=== PATIENT | male | born 1940 | race Caucasian/White ===

== ENCOUNTER 2017-05-02 14:06 | Emergency (ER) | payer MEDICARE, BC ==
[~2017-05-02] VITALS: Ht 172.7 cm; Wt 102.1 kg
[~2017-05-02 14:06] MED LIST: ALLO300 PO; FENT75DI T-DERMAL; FURO1TAB93 PO; GABA100C4 PO; LACT20SO4 PO; LISI2.5T55 PO; PERC7.5T13 PO; PRAV40TA PO; RIFA550 PO; RIVA20 PO; SPIR25TA PO; TOPR50TA PO; XANA1TAB6 PO
[2017-05-02 14:12] VITALS: BP 117/58; PULSE 84; RESP 12; TEMP 98.7; O2SAT 93
--- NOTE | 2017-05-02 14:49 | PD ---
HPI Chief Complaint: WOUND Time Seen by Provider: 14:39 Travel History International Travel<30 days: No Contact w/Intl Traveler<30days: No History of Present Illness HPI 76-year-old man presents emergency department for evaluation of a painful wound to the dorsal aspect of his left hand at the base of the thumb. Patient reports he cut his hand 6 days ago when he reached into his pocket and his pocket night punctured the hand. He reports he has been provided local wound care to the area. The area became increasingly more painful and slightly red 2 days ago. He denies fever, chills. He reports he has full function and normal sensation of the digit. Tetanus immunization is up-to-date. PFSH Past Medical History Atrial Fibrillation: Yes Blood Disorders: No Anxiety: Yes Heart Rhythm Problems: Yes Cancer: No Cardiovascular Problems: Yes (pacemaker/ablation) High Cholesterol: Yes Diminished Hearing: No Endocrine: No Hypertension: Yes Musculoskeletal: No Neurologic: No Reproductive: No Past Surgical History Abdominal Surgery: Yes ( INTASUSSEPTION REPAIR - BOWEL RESECTION ( DIVERTICULITIS)) AICD: Yes Body Medical Devices: DUAL PACER Cardiac Surgery: Yes (pacemaker/ablation-AICD) Pacemaker: Yes (DEFIB) Social History Alcohol Use: No Tobacco Use: No Substance Use: No Allergies-Medications (Allergen,Severity, Reaction): Uncoded Allergies: ANTIBIOTIC? (Adverse Reaction, Severe, Nausea/Vomiting, 10/14/13) Reported Meds & Prescriptions Reported Meds & Active Scripts Active Reported Alpha Lipoic Acid 200 Mg Cap 200 Mg PO TID Allopurinol 300 Mg Tab 300 Mg PO DAILY Xifaxan (Rifaximin) 550 Mg Tab 550 Mg PO Q12HR Xarelto (Rivaroxaban) 20 Mg Tab 20 Mg PO DAILY Vitamin B Complex Tablet (Vit B Comp/C/FA/Iron/Vit E) 500-400-18 Tablet 1 Tab PO DAILY Spironolactone 25 Mg Tab 25 Mg PO DAILY Pravastatin 40 Mg Tab 40 Mg PO DAILY Potassium Chloride ER (Potassium Chloride) 10 Meq Cap 10 Meq PO DAILY Lortab (Hydrocodone-Acetaminophen) 7.5-325 Mg Tab 1 Tab PO Q4H PRN Metoprolol Succinate ER 24 HR (Metoprolol Succinate) 25 Mg Tab 25 Mg PO DAILY Lisinopril 2.5 Mg Tab 2.5 Mg PO DAILY Lactulose Liq (Lactulose) 10 Gm/15 Ml Soln 30 Ml PO Q6H PRN Gabapentin 800 Mg Tab 800 Mg PO TID Furosemide 40 Mg Tab 40 Mg PO BID Folic Acid 1 Mg Tablet 1 Tab PO DAILY Centrum Silver (Multiple Vitamins W/ Minerals) 400 Mcg-250 Mcg Chw 1 Tab PO DAILY Calcium 600-D3 Plus Caplet (Ca/D3/Mag Ox/Zinc/Meter Installer/Basil/Bor) 600 Mg-800 Tablet 1 Tab PO DAILY Review of Systems Except as stated in HPI: all other systems reviewed are Neg General / Constitutional: No: Fever Physical Exam Narrative GENERAL: Well-nourished, well-developed patient. SKIN: Focused skin assessment warm/dry. Approximately 2 cm laceration left hand dorsal aspect base of left thumb with scab in place. CARDIOVASCULAR: Regular rate and rhythm without murmurs, gallops, or rubs. RESPIRATORY: Breath sounds equal bilaterally. No accessory muscle use. GASTROINTESTINAL: Abdomen soft, non-tender, nondistended. MUSCULOSKELETAL: No cyanosis, or edema. Left hand: Approximately 2 cm laceration left hand dorsal aspect base of left thumb with scab in place. Surrounding erythema is noted. The wound is warm to touch. There is no induration, fluctuance, lymphangitis. Patient is able to fully flex and extend the thumb. Brisk cap refill. Data Data Last Documented VS Vital Signs Date Time Temp Pulse Resp B/P (MAP) Pulse Ox O2 Delivery O2 Flow Rate FiO2 05/02/17 14:54 05/02/17 14:12 98.7 84 12 93 MDM Medical Decision Making Medical Screen Exam Complete: Yes Emergency Medical Condition: Yes Differential Diagnosis Wound infection, hand laceration, cellulitis Narrative Course 76-year-old man presents emergency department for evaluation of a painful wound to the dorsal aspect of his left hand at the base of the thumb. Patient reports he cut his hand 6 days ago when he reached into his pocket and his pocket night punctured the hand. He reports he has been provided local wound care to the area. The area became increasingly more painful and slightly red 2 days ago. On exam patient has an approximately 2 cm laceration to the dorsal aspect of the left thumb with a scab in place. It has surrounding erythema. No induration or fluctuance. No drainage. No lymphangitis. Patient is able to fully flex and extend the left thumb. Patient will be treated for wound infection and instructed to follow-up with his primary doctor. Patient was put in a thumb splint to immobilize the area. Wound care discussed. Patient verbalizes understanding and agrees to plan. Diagnosis Primary Impression: Wound infection Referrals: Primary Care Physician Additional Instructions: Take the antibiotics as prescribed. Wash the wound daily with soap and warm water. Dry the wound completely. Apply a clean dry dressing. Then use the thumb splint/Constantin wrap to immobilize the thumb. Follow-up with her doctor for recheck next week. Return to the emergency department if he had new worsening symptoms Scripts Sulfamethoxazole-Trimethoprim (Bactrim DS) 800-160 Mg Tab 1 TAB PO BID for Infection, #14 TAB 0 Refills Prov: Daisy Coles 05/02/17 Cephalexin (Keflex) 500 Mg Cap 500 MG PO Q6H for Infection for 7 Days, #28 CAP 0 Refills Prov: Daisy Coles 05/02/17 Disposition: 01 DISCHARGE HOME Condition: Stable Daisy Coles May 02, 2017 14:49
[2017-05-02] MEDS ORDERED: ALPH1CAP PO (14:54)
[2017-05-02] MEDS ORDERED: POTA10CA PO (14:54)
[2017-05-02] MEDS ORDERED: METO25TA6 PO (14:54)
[2017-05-02] MEDS ORDERED: GABA800T PO (14:54)
[2017-05-02] MEDS ORDERED: SPIR25TA PO (14:54)
[2017-05-02] MEDS ORDERED: CENTCHW3 PO (14:54)
[2017-05-02] MEDS ORDERED: FOLI1TAB6 PO (14:54)
[2017-05-02] MEDS ORDERED: ALLO300T2 PO (14:54)
[2017-05-02] MEDS ORDERED: CALC1TAB PO (14:54)
[2017-05-02] MEDS ORDERED: TH BTAB PO (14:54)
[2017-05-02] MEDS ORDERED: HYDR-3534 PO (14:54)
[2017-05-02] MEDS ORDERED: LACT10SO PO (14:54)
[2017-05-02] MEDS ORDERED: FURO40TA PO (14:54)
[2017-05-02] MEDS ORDERED: LISI2.5T3 PO (14:54)
[2017-05-02] MEDS ORDERED: PRAV40TA2 PO (14:54)
[2017-05-02] MEDS ORDERED: XIFA550T4 PO (14:54)
[2017-05-02] MEDS ORDERED: XARE20TA PO (14:54)
[2017-05-02] MEDS ORDERED: BACT800T5 PO (14:57)
[2017-05-02] MEDS ORDERED: CEPH-460 PO (14:57)
== END 2017-05-02 15:03 | disposition home or self-care (01) ==
LOC: PHEFT 14:06
DX: S61.412A Laceration without foreign body of left hand, initial encounter (principal); W26.0XXA Contact with knife, initial encounter; E78.00 Pure hypercholesterolemia, unspecified; I10 Essential (primary) hypertension; I48.91 Unspecified atrial fibrillation; Z95.0 Presence of cardiac pacemaker
CPT/HCPCS: 99284

== ENCOUNTER 2017-05-06 13:05 | Emergency (ER) | payer MEDICARE, BC ==
[~2017-05-06] VITALS: Ht 172.7 cm; Wt 105.0 kg
[~2017-05-06 13:05] MED LIST changes: -ALLO300 PO; +ALLO300T2 PO; +ALPH1CAP PO; +BACT800T5 PO; +CALC1TAB PO; +CENTCHW3 PO; +CEPH-460 PO; -FENT75DI T-DERMAL; +FOLI1TAB6 PO; -FURO1TAB93 PO; +FURO40TA PO; -GABA100C4 PO; +GABA800T PO; +HYDR-3534 PO; +LACT10SO PO; -LACT20SO4 PO; +LISI2.5T3 PO; -LISI2.5T55 PO; +METO25TA6 PO; -PERC7.5T13 PO; +POTA10CA PO; -PRAV40TA PO; +PRAV40TA2 PO; -RIFA550 PO; -RIVA20 PO; +TH BTAB PO; -TOPR50TA PO; -XANA1TAB6 PO; +XARE20TA PO; +XIFA550T4 PO
[2017-05-06 13:08] VITALS: BP 126/60; PULSE 90; RESP 20; TEMP 99.5; O2SAT 95
--- NOTE | 2017-05-06 13:35 | PD ---
HPI Chief Complaint: Respiratory Symptoms Time Seen by Provider: 13:22 Travel History International Travel<30 days: No Contact w/Intl Traveler<30days: No Traveled to known affect area: No History of Present Illness HPI 76-year-old male says he been feeling somewhat shaky and a little bit short of breath. He was a patient here last Friday for evaluation of a wound infection on his left hand. He was put on Bactrim and Keflex at that time. He' s been taking the medication and he is wondering if this could be a reaction to the medication. He says he has chills in the morning. He is not aware of fever. He has a history of cirrhosis. He has a history of congestive heart failure. He has not been having chest pain. PFSH Past Medical History Atrial Fibrillation: Yes Blood Disorders: No Anxiety: Yes Heart Rhythm Problems: Yes Cancer: No Cardiovascular Problems: Yes (pacemaker/ablation) High Cholesterol: Yes Diminished Hearing: No Endocrine: No Hypertension: Yes Medical other: Yes (NEUOPATHY) Musculoskeletal: No Neurologic: No Reproductive: No Tetanus Vaccination: > 5 Years Influenza Vaccination: Yes Past Surgical History Abdominal Surgery: Yes ( INTASUSSEPTION REPAIR - BOWEL RESECTION ( DIVERTICULITIS)) AICD: Yes Body Medical Devices: DUAL PACER Cardiac Surgery: Yes (pacemaker/ablation-AICD) Pacemaker: Yes (DEFIB) Social History Alcohol Use: No Tobacco Use: No Substance Use: No Allergies-Medications (Allergen,Severity, Reaction): Coded Allergies: No Known Allergies (Unverified , 05/06/17) Reported Meds & Prescriptions Reported Meds & Active Scripts Active Bactrim DS (Sulfamethoxazole-Trimethoprim) 800-160 Mg Tab 1 Tab PO BID Keflex (Cephalexin) 500 Mg Cap 500 Mg PO Q6H 7 Days Reported Alpha Lipoic Acid 200 Mg Cap 200 Mg PO TID Allopurinol 300 Mg Tab 300 Mg PO DAILY Xifaxan (Rifaximin) 550 Mg Tab 550 Mg PO Q12HR Xarelto (Rivaroxaban) 20 Mg Tab 20 Mg PO DAILY Vitamin B Complex Tablet (Vit B Comp/C/FA/Iron/Vit E) 500-400-18 Tablet 1 Tab PO DAILY Spironolactone 25 Mg Tab 25 Mg PO DAILY Pravastatin 40 Mg Tab 40 Mg PO DAILY Potassium Chloride ER (Potassium Chloride) 10 Meq Cap 10 Meq PO DAILY Lortab (Hydrocodone-Acetaminophen) 7.5-325 Mg Tab 1 Tab PO Q4H PRN Metoprolol Succinate ER 24 HR (Metoprolol Succinate) 25 Mg Tab 25 Mg PO DAILY Lisinopril 2.5 Mg Tab 2.5 Mg PO DAILY Lactulose Liq (Lactulose) 10 Gm/15 Ml Soln 30 Ml PO Q6H PRN Gabapentin 800 Mg Tab 800 Mg PO TID Furosemide 40 Mg Tab 40 Mg PO BID Folic Acid 1 Mg Tablet 1 Tab PO DAILY Centrum Silver (Multiple Vitamins W/ Minerals) 400 Mcg-250 Mcg Chw 1 Tab PO DAILY Calcium 600-D3 Plus Caplet (Ca/D3/Mag Ox/Zinc/Water Truck Driver/Basil/Bor) 600 Mg-800 Tablet 1 Tab PO DAILY Review of Systems General / Constitutional: Positive: Chills Eyes: No: Diploplia, Blurred Vision HENT: No: Headaches, Vertigo Cardiovascular: No: Chest Pain or Discomfort, Palpitations Respiratory: Positive: Shortness of Breath, No: Cough Gastrointestinal: No: Nausea, Vomiting Genitourinary: No: Urgency, Frequency Skin: No Rash, No Itching Hematologic/Lymphatic: No: Easy Bruising Physical Exam Narrative GENERAL: Well-developed male SKIN: Focused skin assessment warm/dry. HEAD: Atraumatic. Normocephalic. EYES: Pupils equal and round. No scleral icterus. No injection or drainage. ENT: No nasal bleeding or discharge. Mucous membranes pink and moist. NECK: Trachea midline. No JVD. CARDIOVASCULAR: Regular rate and rhythm. No murmur appreciated. RESPIRATORY: No accessory muscle use. Clear to auscultation. Breath sounds equal bilaterally. GASTROINTESTINAL: Abdomen soft, non-tender, nondistended. Hepatic and splenic margins not palpable. MUSCULOSKELETAL: No obvious deformities. No clubbing. No cyanosis. Bilateral pedal edema. The wound On the left hand is not red or hot. It appears to be healing well. I don't see evidence of infection at this time. NEUROLOGICAL: Awake and alert. No obvious cranial nerve deficits. Motor grossly within normal limits. Normal speech. PSYCHIATRIC: Appropriate mood and affect; insight and judgment normal. Data Data Last Documented VS Vital Signs Date Time Temp Pulse Resp B/P (MAP) Pulse Ox O2 Delivery O2 Flow Rate FiO2 05/06/17 13:22 82 98 Room Air 05/06/17 13:08 99.5 20 126/60 (82) Orders Orders Complete Blood Count With Diff (05/06/17 13:31) Comprehensive Metabolic Panel (05/06/17 13:31) B-Type Natriuretic Peptide (05/06/17 13:31) Chest, Single Ap (05/06/17 13:31) Labs Laboratory Tests Test 05/06/17 13:45 White Blood Count 7.4 TH/MM3 Red Blood Count 2.97 MIL/MM3 Hemoglobin 11.0 GM/DL Hematocrit 32.9 % Mean Corpuscular Volume 110.8 FL Mean Corpuscular Hemoglobin 37.2 PG Mean Corpuscular Hemoglobin Concent 33.6 % Red Cell Distribution Width 13.3 % Platelet Count 70 TH/MM3 Mean Platelet Volume 8.9 FL Neutrophils (%) (Auto) 76.8 % Lymphocytes (%) (Auto) 7.5 % Monocytes (%) (Auto) 14.7 % Eosinophils (%) (Auto) 0.6 % Basophils (%) (Auto) 0.4 % Neutrophils # (Auto) 5.7 TH/MM3 Lymphocytes # (Auto) 0.6 TH/MM3 Monocytes # (Auto) 1.1 TH/MM3 Eosinophils # (Auto) 0.0 TH/MM3 Basophils # (Auto) 0.0 TH/MM3 CBC Comment AUTO DIFF Blood Urea Nitrogen 23 MG/DL Creatinine 1.60 MG/DL Random Glucose 128 MG/DL Total Protein 6.9 GM/DL Albumin 3.3 GM/DL Calcium Level 8.8 MG/DL Alkaline Phosphatase 83 U/L Aspartate Amino Transf (AST/SGOT) 28 U/L Alanine Aminotransferase (ALT/SGPT) 22 U/L Total Bilirubin 3.5 MG/DL Sodium Level 129 MEQ/L Potassium Level 4.5 MEQ/L Chloride Level 97 MEQ/L Carbon Dioxide Level 24.3 MEQ/L Anion Gap 8 MEQ/L Estimat Glomerular Filtration Rate 42 ML/MIN [facility] Medical Decision Making Medical Screen Exam Complete: Yes Emergency Medical Condition: Yes Medical Record Reviewed: Yes Differential Diagnosis Differential includes adverse medication reaction, CHF Narrative Course X-ray shows cardiomegaly and pulmonary vascular congestion. He is currently on Aldactone and Lasix 80 a day. I will increase the Lasix to 3 times daily Diagnosis Primary Impression: Congestive heart failure Qualified Codes: I50.9 - Heart failure, unspecified Additional Instructions: Increase furosemide to 40 mg 3 times daily Disposition: 01 DISCHARGE HOME Condition: Stable Valentino Arrieta MD May 06, 2017 13:35
[2017-05-06 13:55] LABS: AUTOMATED NEUTROPHIL # 5.7 TH/MM3 (1.8-7.7); BASOPHIL % 0.4 % (0.0-2.0); EOSINOPHIL % 0.6 % (0.0-4.0); HEMATOCRIT 32.9 % (39.0-51.0); LYMPH % 7.5 % (9.0-44.0); LYMPHOCYTE # 0.6 TH/MM3 (1.0-4.8); MEAN CELL VOLUME 110.8 FL (80.0-100.0); MEAN CORPUSCULAR HEMOGLOBIN 37.2 PG (27.0-34.0); MEAN CORPUSCULAR HGB CONC 33.6 % (32.0-36.0); MONO % 14.7 % (0.0-8.0); NEUT % 76.8 % (16.0-70.0); PLATELET COUNT 70 TH/MM3 (150-450); RED BLOOD COUNT 2.97 MIL/MM3 (4.50-5.90); RED CELL DISTRIBUTION WIDTH 13.3 % (11.6-17.2); WHITE BLOOD COUNT 7.4 TH/MM3 (4.0-11.0)
[2017-05-06 13:58] LABS: HEMO FLAGS AUTO DIFF
[2017-05-06 14:04] LABS: CHLORIDE 97 MEQ/L (98-107); POTASSIUM 4.5 MEQ/L (3.5-5.1); SODIUM (NA) 129 MEQ/L (136-145)
--- NOTE | 2017-05-06 14:05 | RADRPT ---
EXAM DATE/TIME: 05/06/2017 13:41 [place] COMPARISON: No previous studies available for comparison. INDICATIONS : Short of breath for 3 days. MEDICAL HISTORY : Congestive heart failure. SURGICAL HISTORY : Pacemaker. ENCOUNTER: Initial ACUITY: 3 days PAIN SCORE: 0/10 LOCATION: Bilateral chest FINDINGS: Pacemaker device is noted with control pack over the left chest. Cardiac silhouette is prominent. The re maybe mild parenchymal opacity in the lung bases with mild central vascular congestion noted. CONCLUSION: Poorly compensated cardiac enlargement. Michael Lilly MD on May 06, 2017 at 13:59 Board Certified Radiologist. This report was verified electronically.
[2017-05-06 14:09] LABS: ANION GAP 8 MEQ/L (5-15); BICARBONATE 24.3 MEQ/L (21.0-32.0); BLOOD UREA NITROGEN 23 MG/DL (7-18)
[2017-05-06 14:12] LABS: ALT (GPT) 22 U/L (12-78); AST (GOT) 28 U/L (15-37); GLOMERULAR FILTRATION RATE 42 ML/MIN (>89)
[2017-05-06 14:13] LABS: TOTAL BILIRUBIN ADULT 3.5 MG/DL (0.2-1.0)
[2017-05-06 14:15] LABS: ALKALINE PHOSPHATASE 83 U/L (45-117)
[2017-05-06 14:35] LABS: SCAN/DIFF AUTO DIFF CONFIRMED
[2017-05-06 15:15] VITALS: BP 130/62; PULSE 82; RESP 22; O2SAT 96
== END 2017-05-06 15:20 | disposition home or self-care (01) ==
LOC: PHED 13:05
DX: I50.9 Heart failure, unspecified (principal); R68.83 Chills (without fever); I10 Essential (primary) hypertension; E78.00 Pure hypercholesterolemia, unspecified; K74.60 Unspecified cirrhosis of liver; Z86.79 Personal history of other diseases of the circulatory system; Z86.59 Personal history of other mental and behavioral disorders; Z95.810 Presence of automatic (implantable) cardiac defibrillator
CPT/HCPCS: 71010; 80053; 83880; 85025; 99284

== ENCOUNTER 2018-05-18 16:05 | Observation (INO) ==
--- NOTE | 2018-05-18 16:27 | ED ---
HPI General Chief Complaint: Arrhythmia / Palpitations Stated Complaint: cardiac/evac Time Seen by Provider: 05/18/18 16:14 Source: patient Mode of arrival: EMS Limitations: no limitations History of Present Illness HPI Narrative: patient has a medtronic device... 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 Patient is otherwise a poor historian Related Data Home Medications Medication Instructions Recorded Confirmed allopurinol 300 mg PO DAILY 03/24/18 05/18/18 alpha lipoic acid 200 mg PO TID 03/24/18 05/18/18 calcium carbonate-vitamin D3 1 tab PO DAILY 03/24/18 05/18/18 [Calcium 600 + D(3)] folic acid 1 mg PO DAILY 03/24/18 05/18/18 furosemide [Lasix] 40 mg PO TID 03/24/18 05/18/18 lactulose 10 g PO BID 03/24/18 05/18/18 lisinopril 2.5 mg PO DAILY 03/24/18 05/18/18 metoprolol succinate 12.5 mg PO DAILY 03/24/18 05/18/18 potassium chloride 10 meq PO DAILY 03/24/18 05/18/18 pravastatin 40 mg PO HS 03/24/18 05/18/18 rifaximin [Xifaxan] 550 mg PO BID 03/24/18 05/18/18 rivaroxaban [Xarelto] 20 mg PO DAILY 03/24/18 05/18/18 spironolactone 25 mg PO DAILY 03/24/18 05/18/18 vitamin B complex 1 cap PO DAILY 03/24/18 05/18/18 [id number] acid-lutein [Centrum 1 tab PO DAILY 05/18/18 05/18/18 Silver] oxycodone-acetaminophen 1 tab PO TID 05/18/18 05/18/18 Allergies Allergy/AdvReac Type Severity Reaction Status Date / Time doxycycline Allergy Rash Verified 05/18/18 17:10 Review of Systems ROS Unobtainable ROS Unobtainable: other (Patient is a very poor historian) [facility] Medical History Medical History History of diverticulitis (Acute) History of gout (Acute) History of atrial fibrillation (Acute) History of liver disease (Acute) History of neuropathy (Acute) History of automatic internal cardiac defibrillator (AICD) (Acute) Anemia (Acute) Hypercholesterolemia (Acute) Thrombocytopenia (Acute) Surgical History Surgical History History of colectomy (Acute) Social History Social History Substance History: No History of Abuse Second Hand Smoke Exposure: No Smoking Status: Former smoker Tobacco Type: Cigarettes How Often Do You Have a Drink Containing Alcohol: 4 or more times a week Recent Travel in [facility] within the Last 8 Weeks: No Recent Out of Country Travel within the Last 8 Weeks: No Exam Narrative Exam Narrative: GENERAL: male in moderate distress, which improved when patient laid supine.. SKIN: Warm and dry. HEAD: Atraumatic. Normocephalic. EYES: Pupils equal and round. No scleral icterus. No injection or drainage. ENT: No nasal bleeding or discharge. Mucous membranes pink and moist. NECK: Trachea midline. No JVD. CARDIOVASCULAR: Irregular rhythm, normal rate in the 70s. no rubs or gallops RESPIRATORY: No accessory muscle use. Clear to auscultation. Breath sounds equal bilaterally. GASTROINTESTINAL: Abdomen soft, non-tender, nondistended. No rebound or guarding MUSCULOSKELETAL: Extremities without clubbing, cyanosis, or edema. No obvious deformities. NEUROLOGICAL: Awake and alert. No obvious cranial nerve deficits. Motor grossly within normal limits. Five out of 5 muscle strength in the arms and legs. Normal speech. PSYCHIATRIC: Appropriate mood and affect; insight and judgment normal. Course Initial Documented Vital Signs Temperature 97.4 F L 05/18/18 16:27 Pulse Rate 52 L 05/18/18 16:27 Respiratory Rate 12 05/18/18 16:27 Blood Pressure 119/56 L 05/18/18 16:27 Pulse Oximetry 98 05/18/18 16:27 Last Documented Vital Signs Temperature 97.4 F L 05/18/18 16:27 Pulse Rate 89 05/18/18 19:08 Respiratory Rate 14 05/18/18 19:08 Blood Pressure 91/45 L 05/18/18 19:08 Pulse Oximetry 97 05/18/18 19:08 Critical Care Time Critical Care Time: Yes Total Critical Care Time: 30 Attestation: Aggregate critical care time was 30 minutes. Time to perform other separately billable procedures was not included in the critical care time. My time did not include minutes spent treating any other patients simultaneously or on activities that did not directly contribute to the patient's treatment. The services I provided to this patient were to treat and/or prevent clinically significant deterioration that could result in: [, permanent brain injury] I provided critical care services requiring my management, as noted below: Chart data review, documentation time, medication orders and management, vital sign assessments/reviewing monitor data, ordering and reviewing lab tests, ordering and interpreting/reviewing x-rays and diagnostic studies, care of the patient and discussion of the patient with the admitting physicians. Medical Decision Making MDM Narrative Medical Screen Exam Complete: Yes Emergency Medical Condition: Yes Differential Diagnosis Differential Diagnosis: Electrolyte abnormalities versus symptomatic bradycardia versus non-STEMI atypical versus STEMI atypical Medical Records Medical records reviewed: Yes I reviewed the patient's medical records. Lab Data Lab results reviewed: Yes I reviewed the patient's lab results. Result diagrams: 05/18/18 16:20 05/18/18 16:20 Lab Results 05/18/18 05/18/18 05/18/18 Range/Units 16:20 16:20 16:20 WBC 7.0 (4.0-11.0) th/mm3 RBC 2.78 L (4.50-5.90) mil/mm3 Hgb 11.3 L (13.0-17.0) gm/dL Hct 32.0 L (39.0-51.0) % MCV 115.1 H (80.0-100.0) fL MCH 40.5 H (27.0-34.0) pg MCHC 35.2 (32.0-36.0) % RDW 14.5 (11.6-17.2) % Plt Count 72 L (150-450) th/mm3 MPV 10.1 (7.0-11.0) fL Prelim Diff (Auto) Slide review pending Neut % (Auto) 75.5 H (16.0-70.0) % Lymph % (Auto) 11.1 (9.0-44.0) % [place] % (Auto) 11.8 H (0.0-8.0) % Eos % (Auto) 1.1 (0.0-4.0) % Baso % (Auto) 0.5 (0.0-2.0) % Neut # (Auto) 5.3 (1.8-7.7) th/mm3 Lymph # (Auto) 0.8 L (1.0-4.8) th/mm3 [place] # (Auto) 0.8 (0.0-0.9) th/mm3 Eos # (Auto) 0.1 (0.0-0.4) th/mm3 Baso # (Auto) 0.0 (0.0-0.2) th/mm3 WBC Differential . Diff Scan Auto diff confirmed Differential Comment . Platelet Estimate Low L (Normal) Platelet Morphology Normal (Normal) Spherocytes 1+ H (None) Ovalocytes 2+ H (None) PT 17.2 H (9.8-11.6) sec INR 1.7 Ratio APTT 41.0 H (24.3-30.1) sec Sodium 129 L (136-145) meq/L Potassium 3.6 (3.5-5.1) meq/L Chloride 94 L (98-107) meq/L Carbon Dioxide 22.7 (21.0-32.0) meq/L Anion Gap 12 (5-15) meq/L BUN 19 H (7-18) mg/dL Creatinine 2.64 H (0.60-1.30) mg/dL Estimated GFR 24 L (>89) mL/min Random Glucose 104 (74-106) mg/dL Calcium 8.6 (8.5-10.1) mg/dL Total Bilirubin 2.4 H (0.2-1.0) mg/dL AST 53 H (15-37) U/L ALT 24 (12-78) U/L Alkaline Phosphatase 162 H (45-117) U/L Total Creatine Kinase 174 (39-308) U/L CK-MB (CK-2) 7.4 H (0.5-3.6) ng/mL Troponin I 0.04 (0.02-0.05) ng/mL B-Natriuretic Peptide (0-100) pg/mL Total Protein 6.1 L (6.4-8.2) g/dL Albumin 2.8 L (3.4-5.0) g/dL Lipase 83 (73-393) U/L Serum Alcohol Less than 3 (0-5) mg/dL 05/18/18 Range/Units 16:20 WBC (4.0-11.0) th/mm3 RBC (4.50-5.90) mil/mm3 Hgb (13.0-17.0) gm/dL Hct (39.0-51.0) % MCV (80.0-100.0) fL MCH (27.0-34.0) pg MCHC (32.0-36.0) % RDW (11.6-17.2) % Plt Count (150-450) th/mm3 MPV (7.0-11.0) fL Prelim Diff (Auto) Neut % (Auto) (16.0-70.0) % Lymph % (Auto) (9.0-44.0) % [place] % (Auto) (0.0-8.0) % Eos % (Auto) (0.0-4.0) % Baso % (Auto) (0.0-2.0) % Neut # (Auto) (1.8-7.7) th/mm3 Lymph # (Auto) (1.0-4.8) th/mm3 [place] # (Auto) (0.0-0.9) th/mm3 Eos # (Auto) (0.0-0.4) th/mm3 Baso # (Auto) (0.0-0.2) th/mm3 WBC Differential Diff Scan Differential Comment Platelet Estimate (Normal) Platelet Morphology (Normal) Spherocytes (None) Ovalocytes (None) PT (9.8-11.6) sec INR Ratio APTT (24.3-30.1) sec Sodium (136-145) meq/L Potassium (3.5-5.1) meq/L Chloride (98-107) meq/L Carbon Dioxide (21.0-32.0) meq/L Anion Gap (5-15) meq/L BUN (7-18) mg/dL Creatinine (0.60-1.30) mg/dL Estimated GFR (>89) mL/min Random Glucose (74-106) mg/dL Calcium (8.5-10.1) mg/dL Total Bilirubin (0.2-1.0) mg/dL AST (15-37) U/L ALT (12-78) U/L Alkaline Phosphatase (45-117) U/L Total Creatine Kinase (39-308) U/L CK-MB (CK-2) (0.5-3.6) ng/mL Troponin I (0.02-0.05) ng/mL B-Natriuretic Peptide 90 (0-100) pg/mL Total Protein (6.4-8.2) g/dL Albumin (3.4-5.0) g/dL Lipase (73-393) U/L Serum Alcohol (0-5) mg/dL Imaging Data Radiologist's impression: Chest X-Ray 05/18/18 16:14 CONCLUSION: No acute intrathoracic disease. Stable examination. ECG Data EKG Prior to Arrival: No Attestation: I personally reviewed and interpreted this ECG as follows: Prior ECG tracings: not available for review Interpretation: paced rhythm Discharge Plan Discharge Disposition Patient Disposition: 30 Still Patient Discharge Condition Condition: Fair Discharge Details Diagnosis: Symptomatic bradycardia Physicians Team ED Provider: Valente Loya Primary Care Provider: Vishal Faye Rxs /Orders / Referrals /Forms Prescriptions: No Action oxycodone-acetaminophen 10-325 mg Tablet 1 tab PO TID RF: 0 [id number] acid-lutein [Centrum Silver] 400-250 mcg Tablet,Chewable 1 tab PO DAILY RF: 0 furosemide [Lasix] 40 mg Tablet 40 mg PO TID RF: 0 folic acid 1 mg Tablet 1 mg PO DAILY RF: 0 lactulose 10 gram/15 mL Solution 10 g PO BID RF: 0 calcium carbonate-vitamin D3 [Calcium 600 + D(3)] 600 mg(1,500mg) -400 unit Tablet 1 tab PO DAILY RF: 0 pravastatin 40 mg Tablet 40 mg PO HS RF: 0 potassium chloride 10 mEq Tablet Extended Release 10 meq PO DAILY RF: 0 spironolactone 25 mg Tablet 25 mg PO DAILY RF: 0 allopurinol 300 mg Tablet 300 mg PO DAILY RF: 0 metoprolol succinate 25 mg Tablet Extended Release 24 Hr 12.5 mg PO DAILY RF: 0 lisinopril 2.5 mg Tablet 2.5 mg PO DAILY RF: 0 vitamin B complex Capsule 1 cap PO DAILY RF: 0 rifaximin [Xifaxan] 550 mg Tablet 550 mg PO BID RF: 0 alpha lipoic acid 200 mg Capsule 200 mg PO TID RF: 0 rivaroxaban [Xarelto] 20 mg Tablet 20 mg PO DAILY RF: 0 Status ED Status: With Doctor
--- NOTE | 2018-05-18 16:39 | XR ---
EXAM DATE: 05/18/2018 4:14 PM EDT AGE/SEX: 77 years / Male INDICATIONS: Chest pain today CLINICAL DATA: This is the patient's initial encounter. Patient reports that signs and symptoms have been present for 1 day and indicates a pain score of Nonresponsive. MEDICAL/SURGICAL HISTORY: Congestive heart failure. Cardiovascular disease. Pacemaker. COMPARISON: [facility], CHEST 1V SINGLE AP, 04/02/2018. . FINDINGS: A single AP view of the chest demonstrates the lungs to be symmetrically aerated without evidence of mass, infiltrate or effusion. The heart size remains diffusely enlarged. This is stable compared to the prior study. There is a pacemaker overlying the left chest. No definite pleural effusions. Compar ed to the prior study there have been no new or significant changes. The bony structures are grossly intact.. CONCLUSION: No acute intrathoracic disease. Stable examination. Electronically signed by: Luis Manuel Lopez MD 05/18/2018 4:38 PM EDT
[2018-05-18 17:44] LABS: Baso % (Auto) 0.5 % (0.0-2.0); Eos # (Auto) 0.1 th/mm3 (0.0-0.4); Eos % (Auto) 1.1 % (0.0-4.0); Hemoglobin 11.3 gm/dL (13.0-17.0); Lymph # (Auto) 0.8 th/mm3 (1.0-4.8); Lymph % (Auto) 11.1 % (9.0-44.0); Mean Corpuscular HGB Conc 35.2 % (32.0-36.0); Mean Corpuscular Hemoglobin 40.5 pg (27.0-34.0); Mean Corpuscular Volume 115.1 fL (80.0-100.0); Mean Platelet Volume 10.1 fL (7.0-11.0); Mono # (Auto) 0.8 th/mm3 (0.0-0.9); Mono % (Auto) 11.8 % (0.0-8.0); Neut # (Auto) 5.3 th/mm3 (1.8-7.7); Neut % (Auto) 75.5 % (16.0-70.0); Platelet Count 72 th/mm3 (150-450); Red Blood Count 2.78 mil/mm3 (4.50-5.90); Red Cell Distribution Width 14.5 % (11.6-17.2)
[2018-05-18 17:55] LABS: INR 1.7 Ratio; Prothrombin Time 17.2 sec (9.8-11.6)
[2018-05-18 18:09] LABS: Alanine Aminotransferase 24 U/L (12-78)
[2018-05-18 18:16] LABS: Ovalocytes 2+; Platelet Morphology Normal (Normal); Spherocytes 1+
[2018-05-18 18:17] LABS: Albumin 2.8 g/dL (3.4-5.0); Alkaline Phosphatase 162 U/L (45-117); Anion Gap 12 meq/L (5-15); Aspartate Aminotransferase 53 U/L (15-37); Blood Urea Nitrogen 19 mg/dL (7-18); Calcium 8.6 mg/dL (8.5-10.1); Carbon Dioxide 22.7 meq/L (21.0-32.0); Chloride 94 meq/L (98-107); Creatine Kinase 174 U/L (39-308); Glomerular Filtration Rate 24 mL/min (>89); Glucose,Random 104 mg/dL (74-106); Lipase 83 U/L (73-393); Potassium 3.6 meq/L (3.5-5.1); Sodium 129 meq/L (136-145); Total Protein 6.1 g/dL (6.4-8.2); Troponin I 0.04 ng/mL (0.02-0.05)
[2018-05-18 18:31] LABS: Creatine Kinase MB 7.4 ng/mL (0.5-3.6)
[2018-05-18] MEDS ORDERED: Sod Chloride 0.9% Inj 1,000 ML IV.CONT SCH (22:00)
--- NOTE | 2018-05-18 22:04 | P.HP ---
History of Present Illness Service: [facility] Primary Care Physician: Vishal Faye DO History of Present Illness: 77-year-old male with a past medical history significant for cirrhosis, neuropathy, atrial fibrillation anticoagulated on Xarelto, hyperlipidemia and gout presents to the emergency department for the evaluation of bradycardia and hypotension. The patient reports over the past several weeks he has fallen multiple times. He states that he feels dizzy before he is about to fall some of the time. He also states that approximately 2 weeks ago he lost consciousness prior to a fall in the driveway. Today, the patient was found by EMS to be bradycardic with his heart rate in the 30s-40s and hypotensive with a systolic blood pressure of 70s-80s. The patient endorses dizziness. He denies headache. No fevers or chills. No chest pain or shortness of breath. No abdominal pain. No nausea/vomiting/diarrhea. No lateralizing signs/symptoms. The patient has a [employer] pacemaker/defibrillator and is currently paced in the 50s. Review of Systems All other systems reviewed negative except as stated in HPI PMFSH - History History Provided By: Patient, Digital Marketing Strategist / EMT - Medical History Medical History: Medical History (Last Reviewed 05/18/18 @ 21:57 by Fior Alonzo MD) History of diverticulitis (Acute) History of gout (Acute) History of atrial fibrillation (Acute) History of liver disease (Acute) History of neuropathy (Acute) History of automatic internal cardiac defibrillator (AICD) (Acute) Anemia Hypercholesterolemia Thrombocytopenia - Surgical History Surgical History: Surgical History (Last Reviewed 05/18/18 @ 21:57 by Fior Alonzo MD) History of colectomy (Acute) - Family History Family History: Family History (Last Updated 05/18/18 @ 21:57 by Fior Alonzo MD) Other Breast cancer Coronary artery disease Diabetes mellitus - Tobacco History Second Hand Smoke Exposure: No Smoking Status: Former smoker Tobacco Type: Cigarettes - Alcohol History How Often Do You Have a Drink Containing Alcohol: 4 or more times a week - Substance Use History Substance History: No History of Abuse - Travel History Recent Travel in the [place] Within the Last 8 Weeks: No Recent Travel Out of the Country Within the Last 8 Weeks: No - Immunization History Tetanus Immunization: Unsure Medications and Allergies Active Medications: Active Medications Allopurinol (Zyloprim) 300 mg PO DAILY EMILY Folic Acid (Folic Acid) 1 mg PO DAILY EMILY Furosemide (Lasix) 40 mg PO TID EMILY Non-Formulary Medication (Lactulose [Lactulose]) 10 g PO BID EMILY Sodium Chloride (Ns Flush) 2 ml IV.FLUSH UNSCH PRN PRN Reason: FLUSH AFTER USING IV ACCESS Allergies Allergy/AdvReac Type Severity Reaction Status Date / Time doxycycline Allergy Rash Verified 05/18/18 17:10 Home Medications Medication Instructions Recorded Confirmed Type allopurinol 300 mg PO DAILY 03/24/18 05/18/18 History alpha lipoic acid 200 mg PO TID 03/24/18 05/18/18 History calcium carbonate-vitamin D3 1 tab PO DAILY 03/24/18 05/18/18 History [Calcium 600 + D(3)] folic acid 1 mg PO DAILY 03/24/18 05/18/18 History furosemide [Lasix] 40 mg PO TID 03/24/18 05/18/18 History lactulose 10 g PO BID 03/24/18 05/18/18 History lisinopril 2.5 mg PO DAILY 03/24/18 05/18/18 History metoprolol succinate 12.5 mg PO DAILY 03/24/18 05/18/18 History potassium chloride 10 meq PO DAILY 03/24/18 05/18/18 History pravastatin 40 mg PO HS 03/24/18 05/18/18 History rifaximin [Xifaxan] 550 mg PO BID 03/24/18 05/18/18 History rivaroxaban [Xarelto] 20 mg PO DAILY 03/24/18 05/18/18 History spironolactone 25 mg PO DAILY 03/24/18 05/18/18 History vitamin B complex 1 cap PO DAILY 03/24/18 05/18/18 History [id number] acid-lutein [Centrum 1 tab PO DAILY 05/18/18 05/18/18 History Silver] oxycodone-acetaminophen 1 tab PO TID 05/18/18 05/18/18 History Exam Vital signs: Vital Signs 05/18/18 16:27 05/18/18 16:40 05/18/18 19:08 Temperature 97.4 F L Pulse Rate 52 L 89 Respiratory Rate 12 14 Blood Pressure 119/56 L 91/45 L Pulse Oximetry 98 99 97 Intake & Output 05/18/18 05/18/18 05/19/18 06:59 18:59 06:59 Weight 92.986 kg Narrative: Gen.: No acute distress Head: Normocephalic. Atraumatic. EENT: Pupils equal round and reactive to light. Nose without drainage. Airway intact. Throat without injection. Cardiovascular: Regular rate and rhythm. No murmurs, rubs or gallops. Respiratory: Lungs clear to auscultation bilaterally. No wheezes or rhonchi. Abdomen: Soft, nontender, nondistended. No peritoneal signs. Musculoskeletal: No gross deformities. No edema. Skin: No obvious rashes or erythema. Neuro: Sensory and motor grossly intact. Cranial nerves II through XII grossly intact. Results - Labs CBC & Chem 7: 05/18/18 16:20 05/18/18 16:20 Labs: Laboratory Results - last 24 hr 05/18/18 05/18/18 05/18/18 16:20 16:20 16:20 WBC 7.0 RBC 2.78 L Hgb 11.3 L Hct 32.0 L MCV 115.1 H MCH 40.5 H MCHC 35.2 RDW 14.5 Plt Count 72 L MPV 10.1 Prelim Diff (Auto) Slide review pending Neut % (Auto) 75.5 H Lymph % (Auto) 11.1 [place] % (Auto) 11.8 H Eos % (Auto) 1.1 Baso % (Auto) 0.5 Neut # (Auto) 5.3 Lymph # (Auto) 0.8 L [place] # (Auto) 0.8 Eos # (Auto) 0.1 Baso # (Auto) 0.0 WBC Differential . Diff Scan Auto diff confirmed Differential Comment . Platelet Estimate Low L Platelet Morphology Normal Spherocytes 1+ H Ovalocytes 2+ H PT 17.2 H INR 1.7 APTT 41.0 H Sodium 129 L Potassium 3.6 Chloride 94 L Carbon Dioxide 22.7 Anion Gap 12 BUN 19 H Creatinine 2.64 H Estimated GFR 24 L Random Glucose 104 Calcium 8.6 Total Bilirubin 2.4 H AST 53 H ALT 24 Alkaline Phosphatase 162 H Total Creatine Kinase 174 CK-MB (CK-2) 7.4 H Troponin I 0.04 B-Natriuretic Peptide Total Protein 6.1 L Albumin 2.8 L Lipase 83 Serum Alcohol Less than 3 05/18/18 16:20 WBC RBC Hgb Hct MCV MCH MCHC RDW Plt Count MPV Prelim Diff (Auto) Neut % (Auto) Lymph % (Auto) [place] % (Auto) Eos % (Auto) Baso % (Auto) Neut # (Auto) Lymph # (Auto) [place] # (Auto) Eos # (Auto) Baso # (Auto) WBC Differential Diff Scan Differential Comment Platelet Estimate Platelet Morphology Spherocytes Ovalocytes PT INR APTT Sodium Potassium Chloride Carbon Dioxide Anion Gap BUN Creatinine Estimated GFR Random Glucose Calcium Total Bilirubin AST ALT Alkaline Phosphatase Total Creatine Kinase CK-MB (CK-2) Troponin I B-Natriuretic Peptide 90 Total Protein Albumin Lipase Serum Alcohol - Imaging Impressions Chest X-Ray 05/18/18 16:14 CONCLUSION: No acute intrathoracic disease. Stable examination. Caprini VTE Risk Assessment Caprini VTE Risk Assessment: Moderate/High Risk (score >= 2) VTE Pharmacological Exception Reason: High risk for bleeding Caprini Risk Assessment Model: Point Value = 1 Point Value = 2 Point Value = 3 Point Value = 5 Age 41-60 Minor surgery BMI > 25 kg/m2 Swollen legs Varicose veins or History of unexplained or recurrent spontaneous Oral contraceptives or hormone replacement Sepsis (< 1 month) Serious lung disease, including pneumonia (< 1 month) Abnormal pulmonary function Acute myocardial infarction Congestive heart failure (< 1 month) History of inflammatory bowel disease Medical patient at bed rest Age 61-74 Arthroscopic surgery Major open surgery (> 45 min) Laparoscopic surgery (> 45 min) Malignancy Confined to bed (> 72 hours) Immobilizing plaster cast Central venous access Age >= 75 History of VTE Family history of VTE Factor V Leiden Prothrombin [id number] Lupus anticoagulant Anticardiolipin antibodies Elevated serum homocysteine Heparin-induced thrombocytopenia Other congenital or acquired thrombophilia Stroke (< 1 month) Elective arthroplasty Hip, pelvis, or leg fracture Acute spinal cord injury (< 1 month) Prophylaxis Regimen: Total Risk Factor Score Risk Level Prophylaxis Regimen 0-1 Low Early ambulation 2 Moderate Order ONE of the following: *Sequential Compression Device (SCD) *Heparin 5000 units SQ BID 3-4 Higher Order ONE of the following medications: *Heparin 5000 units SQ TID *Enoxaparin/Lovenox 40 mg SQ daily (WT < 150 kg, CrCl > 30 mL/min) *Enoxaparin/Lovenox 30 mg SQ daily (WT < 150 kg, CrCl > 10-29 mL/min) *Enoxaparin/Lovenox 30 mg SQ BID (WT < 150 kg, CrCl > 30 mL/min) AND/OR *Sequential Compression Device (SCD) 5 or more Highest Order ONE of the following medications: *Heparin 5000 units SQ TID (Preferred with Epidurals) *Enoxaparin/Lovenox 40 mg SQ daily (WT < 150 kg, CrCl > 30 mL/min) *Enoxaparin/Lovenox 30 mg SQ daily (WT < 150 kg, CrCl > 10-29 mL/min) *Enoxaparin/Lovenox 30 mg SQ BID (WT < 150 kg, CrCl > 30 mL/min) AND *Sequential Compression Device (SCD) Assessment and Plan - Plan Assessment/plan: 1. Bradycardia/hypotension/syncope Unclear etiology Patient currently paced ACS rule out pending; serial troponins/EKGs Carotid ultrasound/echo pending Normotensive in the emergency department PT consulted Holding home lisinopril for hypotension 2. Acute on chronic renal insufficiency Creatinine 2.64, baseline 1.5 Monitor renal function Avoid IV secondary 3. Atrial fibrillation Continue anticoagulation with Xarelto Continue metoprolol 4. Cirrhosis Continue home lactulose and rifaximin Continue Lasix and spironolactone 5. Neuropathy Patient reports he takes 10 mg of oxycodone 3 times a day Decrease to 5 mg as this may be contributing to patient's symptoms 6. Hyperlipidemia/gout Continue home medications FEN NPO Electrolytes: Monitor and replete as needed
[2018-05-18] MEDS ORDERED: Sodium Chloride 0.9% 2 ML Flush PRN IV.FLUSH (22:30)
--- NOTE | 2018-05-18 23:10 | US ---
EXAM DATE: 05/18/2018 12:00 AM EDT AGE/SEX: 77 years / Male INDICATIONS: Syncope. CLINICAL DATA: This is the patient's initial encounter. Patient reports that signs and symptoms have been present for 2 weeks and indicates a pain score of 0/10. MEDICAL/SURGICAL HISTORY: Hypercholesterolemia. Atrial fibrillation. Diverticulitis. Gout. L iver disease. Neuropathy. Thrombocytopenia. . Colectomy. AICD. COMPARISON: . VELOCITY PARAMETERS: ICA/CCA Ratio: Right 1.10 , Left 0.83 ICA: Right 149 cm/sec, Left 122 cm/sec CCA: Right 135 cm/sec, Left 147 cm/sec ECA: Right 168 cm/sec, Left 74 cm/sec Vertebral: Right 45 cm/sec antegrade, Left 37 cm/sec antegrade FINDINGS: Right Carotid: There is mild noncalcified plaque in the distal common carotid artery and calcified p laque in the common carotid artery and proximal internal carotid artery.The waveforms are within norm al limits. Left Carotid: There is mild calcified and noncalcified plaque in the carotid bulb and proximal inter nal carotid artery. The waveforms are within normal limits. Other: None. CONCLUSION: 1. Right Internal Carotid Artery: Findings indicate 50-69% stenosis. 2. Left Internal Carotid Artery: Findings indicate <50% stenosis. Electronically signed by: Michael Cutler MD 05/18/2018 11:09 PM EDT
[2018-05-18 23:34] LABS: Troponin I 0.05 ng/mL (0.02-0.05)
[2018-05-19 03:52] LABS: Baso % (Auto) 0.4 % (0.0-2.0); Eos # (Auto) 0.1 th/mm3 (0.0-0.4); Eos % (Auto) 1.2 % (0.0-4.0); Hematocrit 35.9 % (39.0-51.0); Hemoglobin 12.3 gm/dL (13.0-17.0); Lymph # (Auto) 1.1 th/mm3 (1.0-4.8); Lymph % (Auto) 17.1 % (9.0-44.0); Mean Corpuscular HGB Conc 34.4 % (32.0-36.0); Mean Corpuscular Hemoglobin 40.3 pg (27.0-34.0); Mean Corpuscular Volume 117.3 fL (80.0-100.0); Mean Platelet Volume 9.6 fL (7.0-11.0); Mono # (Auto) 0.5 th/mm3 (0.0-0.9); Neut # (Auto) 4.8 th/mm3 (1.8-7.7); Neut % (Auto) 73.3 % (16.0-70.0); Platelet Count 86 th/mm3 (150-450); Red Blood Count 3.06 mil/mm3 (4.50-5.90); Red Cell Distribution Width 14.5 % (11.6-17.2); White Blood Count 6.5 th/mm3 (4.0-11.0)
[2018-05-19 04:24] LABS: Alanine Aminotransferase 26 U/L (12-78); Albumin 2.9 g/dL (3.4-5.0); Anion Gap 13 meq/L (5-15); Aspartate Aminotransferase 40 U/L (15-37); Blood Urea Nitrogen 21 mg/dL (7-18); Calcium 8.5 mg/dL (8.5-10.1); Carbon Dioxide 24.2 meq/L (21.0-32.0); Chloride 97 meq/L (98-107); Glomerular Filtration Rate 30 mL/min (>89); Glucose,Random 93 mg/dL (74-106); Potassium 3.2 meq/L (3.5-5.1); Sodium 134 meq/L (136-145)
[2018-05-19 04:27] LABS: Alkaline Phosphatase 180 U/L (45-117); Creatine Kinase 123 U/L (39-308); Total Protein 6.5 g/dL (6.4-8.2); Troponin I 0.05 ng/mL (0.02-0.05)
[2018-05-19 04:42] LABS: Ovalocytes 1+; Platelet Morphology Normal (Normal)
--- NOTE | 2018-05-19 10:20 | P.DCO ---
- Physical Therapy Order: Evaluate and treat, Improve ambulation, Strength and gait training - Home Health Nursing Order: Medical education, Signs/symptoms of disease process, Nursing assessment with vital signs - Case Management Consult Yes - Certification I have seen patient Ranjan Kerr on 05/19/18. My clinical findings support the need for the requested home health care services because: Limited mobility due to disease progression, Patient has SOB, Deconditioned with increased weakness, Medication compliance is questionable, Limited ability to care for self, High risk of falls I certify that my clinical findings support that this patient is homebound because: Unsteady gait/balance, Unsafe to leave home unassisted, Unable to use public transportation
[2018-05-19] MEDS ORDERED: Haloperidol Inj 5 MG/ML Ampul IV.PUSH PRN (11:38)
[2018-05-19] MEDS ORDERED: LORazepam 1 MG Tablet PO PRN (11:38)
[2018-05-19] MEDS: Spironolactone 25 MG Tablet PO SCH (11:45)
[2018-05-19] MEDS: Folic Acid 1 MG Tablet PO SCH (11:46)
[2018-05-19] MEDS: Furosemide 40 MG Tablet PO SCH ×3 (11:46→19:01)
[2018-05-19] MEDS: Sodium Chloride 0.9% 2 ML Flush BID IV.FLUSH SCH ×2 (11:46→21:41)
[2018-05-19] MEDS: rifAXIMin 550 MG Tablet PO SCH ×2 (11:47→21:41)
[2018-05-19] MEDS: Allopurinol 300 MG Tablet PO SCH (11:47)
[2018-05-19] MEDS: Rivaroxaban 15 MG Tablet PO SCH (11:47)
[2018-05-19] MEDS ORDERED: Sod Chloride 0.9% Inj 1,000 ML IV.CONT SCH (12:30)
[2018-05-19] MEDS ORDERED: LORazepam 0.5 MG Tablet PO PRN (13:00)
--- NOTE | 2018-05-19 13:25 | P.PN ---
Subjective Interval history: Patient seen while sitting up in chair in room. He is anxious to get home. Denies any chest pain or shortness of breath. No nausea vomiting or diarrhea. He has had no further episodes of bradycardia, hypotension or feeling faint. He does tell me that his pain management recently increased his medication dose to 10 mg 3 times daily a few months ago. Discussed his hyponatremia at admit and he does acknowledge daily EtOH use but will not say how much. He is noted to have a tremor in his right hand; denies history of tremor. Physical Exam Vital signs: Vital Signs 05/18/18 16:27 05/18/18 16:40 05/18/18 19:08 Temperature 97.4 F L Pulse Rate 52 L 89 Respiratory Rate 12 14 Blood Pressure 119/56 L 91/45 L Pulse Oximetry 98 99 97 05/18/18 20:55 05/18/18 23:06 05/19/18 01:48 Temperature Pulse Rate 93 H 93 H Respiratory Rate 14 14 Blood Pressure 93/47 L 87/48 L Pulse Oximetry 97 96 05/19/18 03:13 05/19/18 06:14 05/19/18 08:53 Temperature Pulse Rate 82 93 H 90 Respiratory Rate 14 17 18 Blood Pressure 132/94 H 113/53 L 154/83 H Pulse Oximetry 98 98 05/19/18 11:00 05/19/18 11:44 Temperature 98.6 F Pulse Rate 80 87 Respiratory Rate 21 Blood Pressure 132/59 L Pulse Oximetry 99 Intake & Output 05/18/18 05/19/18 05/19/18 18:59 06:59 18:59 Weight 92.986 kg 92.986 kg Other: Weight On Admission 92.986 kg Narrative: Gen.: No acute distress Head: Normocephalic. Atraumatic. EENT: Pupils equal round and reactive to light. Nose without drainage. Airway intact. Throat without injection. Cardiovascular: Regular rate and rhythm. No murmurs, rubs or gallops. Respiratory: Lungs clear to auscultation bilaterally. No wheezes or rhonchi. Abdomen: Soft, nontender, nondistended. No peritoneal signs. Musculoskeletal: No gross deformities. No edema. Skin: No obvious rashes or erythema. Neuro: Sensory and motor grossly intact. Cranial nerves II through XII grossly intact. Right hand tremor Results - Labs CBC & Chem 7: 05/19/18 03:29 05/19/18 03:29 Laboratory Results - last 24 hr 05/18/18 05/18/18 05/18/18 16:20 16:20 16:20 WBC 7.0 RBC 2.78 L Hgb 11.3 L Hct 32.0 L MCV 115.1 H MCH 40.5 H MCHC 35.2 RDW 14.5 Plt Count 72 L MPV 10.1 Prelim Diff (Auto) Slide review pending Neut % (Auto) 75.5 H Lymph % (Auto) 11.1 [place] % (Auto) 11.8 H Eos % (Auto) 1.1 Baso % (Auto) 0.5 Neut # (Auto) 5.3 Lymph # (Auto) 0.8 L [place] # (Auto) 0.8 Eos # (Auto) 0.1 Baso # (Auto) 0.0 WBC Differential . Diff Scan Auto diff confirmed Differential Comment . Platelet Estimate Low L Platelet Morphology Normal Spherocytes 1+ H Ovalocytes 2+ H PT 17.2 H INR 1.7 APTT 41.0 H Sodium 129 L Potassium 3.6 Chloride 94 L Carbon Dioxide 22.7 Anion Gap 12 BUN 19 H Creatinine 2.64 H Estimated GFR 24 L POC Glucose Random Glucose 104 Calcium 8.6 Total Bilirubin 2.4 H AST 53 H ALT 24 Alkaline Phosphatase 162 H Total Creatine Kinase 174 CK-MB (CK-2) 7.4 H Troponin I 0.04 B-Natriuretic Peptide Total Protein 6.1 L Albumin 2.8 L Lipase 83 Serum Alcohol Less than 3 05/18/18 05/18/18 05/19/18 16:20 23:01 03:29 WBC RBC Hgb Hct MCV MCH MCHC RDW Plt Count MPV Prelim Diff (Auto) Neut % (Auto) Lymph % (Auto) [place] % (Auto) Eos % (Auto) Baso % (Auto) Neut # (Auto) Lymph # (Auto) [place] # (Auto) Eos # (Auto) Baso # (Auto) WBC Differential Diff Scan Differential Comment Platelet Estimate Platelet Morphology Spherocytes Ovalocytes PT INR APTT Sodium 134 L Potassium 3.2 L Chloride 97 L Carbon Dioxide 24.2 Anion Gap 13 BUN 21 H Creatinine 2.16 H Estimated GFR 30 L POC Glucose Random Glucose 93 Calcium 8.5 Total Bilirubin 2.4 H AST 40 H ALT 26 Alkaline Phosphatase 180 H Total Creatine Kinase 132 123 CK-MB (CK-2) Troponin I 0.05 0.05 B-Natriuretic Peptide 90 Total Protein 6.5 Albumin 2.9 L Lipase Serum Alcohol 05/19/18 05/19/18 03:29 12:33 WBC 6.5 RBC 3.06 L Hgb 12.3 L Hct 35.9 L MCV 117.3 H MCH 40.3 H MCHC 34.4 RDW 14.5 Plt Count 86 L MPV 9.6 Prelim Diff (Auto) Slide review pending Neut % (Auto) 73.3 H Lymph % (Auto) 17.1 [place] % (Auto) 8.0 Eos % (Auto) 1.2 Baso % (Auto) 0.4 Neut # (Auto) 4.8 Lymph # (Auto) 1.1 [place] # (Auto) 0.5 Eos # (Auto) 0.1 Baso # (Auto) 0.0 WBC Differential . Diff Scan Auto diff confirmed Differential Comment . Platelet Estimate Low L Platelet Morphology Normal Spherocytes Ovalocytes 1+ H PT INR APTT Sodium Potassium Chloride Carbon Dioxide Anion Gap BUN Creatinine Estimated GFR POC Glucose 120 H Random Glucose Calcium Total Bilirubin AST ALT Alkaline Phosphatase Total Creatine Kinase CK-MB (CK-2) Troponin I B-Natriuretic Peptide Total Protein Albumin Lipase Serum Alcohol - Imaging Impressions Carotid Doppler Study 05/18/18 00:00 CONCLUSION: 1. Right Internal Carotid Artery: Findings indicate 50-69% stenosis. 2. Left Internal Carotid Artery: Findings indicate <50% stenosis. Chest X-Ray 05/18/18 16:14 CONCLUSION: No acute intrathoracic disease. Stable examination. Assessment and Plan - Plan Assessment/plan: 1. Bradycardia/hypotension/syncope Unclear etiology; suspect possible overmedication and/or EtOH use with pain medication. Patient currently paced Labs and imaging negative Normotensive in the emergency department PT consulted Holding home lisinopril for hypotension 2. Acute on chronic renal insufficiency Creatinine 2.64, baseline 1.5 Monitor renal function Patient refusing oral intake; gentle IVF hydration ordered 3. Atrial fibrillation Continue anticoagulation with Xarelto Continue metoprolol 4. Cirrhosis Continue home lactulose and rifaximin Continue Lasix and spironolactone 5. Neuropathy Patient reports he takes 10 mg of oxycodone 3 times a day (confirmed via E- forcse) Decrease to 5 mg as this may be contributing to patient's symptoms 6. Hyperlipidemia/gout Continue home medications 7. EtOH abuse Monitor for withdrawal. Discharge planning: We will likely discharge home with home health once AK I has resolved
--- NOTE | 2018-05-19 15:54 | ECG ---
Date Performed: 05/18/2018 Time Performed: 16:10:53 PTAGE: 77 years EKG: ELECTRONIC VENTRICULAR PACEMAKER ABNORMAL RHYTHM ECG WARNING: DATA QUALITY MAY AFFECT INTER PRETATION INTERPRETATION BASED ON A DEFAULT AGE OF 40 YEARS PREVIOUS TRACING : 04/02/2018 20.47 Since the previous tracing, no significant change not ed DOCTOR: Pete Washburn Interpretating Date/Time 05/19/2018 15:52:43
--- NOTE | 2018-05-19 16:07 | ECHRPT ---
Indication: SYNCOPE CONCLUSIONS Normal left ventricular size. Mild concentric left ventricular hypertrophy. The left ventricular systolic function is low normal with an estimated ejection fraction in the rang e of 50- 55%. There was limited left ventricular wall motion assessment due to poor endocardial visualization . Prominent sigmoid shaped septum. A pacemaker wire is noted. The left atrial size is moderately dilated. There is a pacemaker wire present in the right atrial cavity. [id number] mitral valve regurgitation. Aortic valve sclerosis is present. There is mild tricuspid valve regurgitation. The estimated pulmonary arterial pressure is 35 mmHg. BP: / HR: Rhythm: MEASUREMENTS (Male / Female) Normal Values Technical Quality: 2D ECHO LV Diastolic Diameter PLAX 4.8 cm 4.2 - 5.9 / 3.9 - 5.3 cm LV Systolic Diameter PLAX 3.9 cm IVS Diastolic Thickness 1.5 cm 0.6 - 1.0 / 0.6 - 0.9 cm LVPW Diastolic Thickness 1.5 cm 0.6 - 1.0 / 0.6 - 0.9 cm LV Relative Wall Thickness 0.6 RV Internal Dim ED PLAX 4.2 cm LVOT Diameter 2.4 cm LA Systolic Diameter LX 5.2 cm 3.0 - 4.0 / 2.7 - 3.8 cm M-MODE Aortic Root Diameter MM 4.3 cm LA Systolic Diameter MM 6.1 cm LA Ao Ratio MM 1.4 AV Cusp Separation MM 2.1 cm DOPPLER AV Peak Velocity 194.5 cm/s AV Peak Gradient 15.1 mmHg AV Mean Gradient 11.0 mmHg AV Velocity Time Integral 40.6 cm LVOT Peak Velocity 68.0 cm/s LVOT Peak Gradient 1.9 mmHg LVOT Velocity Time Integral 14.6 cm AV Area Cont Eq vti 1.6 cm AV Area Cont Eq pk 1.6 cm Mitral E Point Velocity 99.3 cm/s LV E' Lateral Velocity 9.4 cm/s Mitral E to LV E' Lateral Ratio 10.6 LV E' Septal Velocity 8.2 cm/s Mitral E to LV E' Septal Ratio 12.1 TR Peak Velocity 251.0 cm/s TR Peak Gradient 25.2 mmHg Right Atrial Pressure 10.0 mmHg Pulmonary Artery Systolic Pressu 35.2 mmHg Right Ventricular Systolic Press 35.2 mmHg PV Peak Velocity 128.0 cm/s PV Peak Gradient 6.6 mmHg FINDINGS LEFT VENTRICLE Normal left ventricular size. Mild concentric left ventricular hypertrophy. The left ventricular systolic function is low normal with an estimated ejection fraction in the rang e of 50- 55%. There was limited left ventricular wall motion assessment due to poor endocardial visualization . Prominent sigmoid shaped septum. RIGHT VENTRICLE A pacemaker wire is noted. Normal right ventricular size and systolic function. LEFT ATRIUM The left atrial size is moderately dilated. RIGHT ATRIUM There is a pacemaker wire present in the right atrial cavity. The right atrial size is normal. ATRIAL SEPTUM Normal atrial septal thickness without atrial level shunting by limited color doppler interrogation. AORTA The aortic root and proximal ascending aorta are normal in size on limited imaging. MITRAL VALVE Mitral annular calcification is present. [id number] mitral valve regurgitation. AORTIC VALVE Trileaflet aortic valve. Aortic valve sclerosis is present. TRICUSPID VALVE There is mild tricuspid valve regurgitation. The estimated pulmonary arterial pressure is 35 mmHg. PULMONARY VALVE No pulmonary valve regurgitation or stenosis. VESSELS The inferior vena cava is normal in size. PERICARDIUM No pericardial effusion. Luis Castro MD (Electronically Signed) Final Date:19 May 2018 16:06
[2018-05-19] MEDS: Famotidine 20 MG Tablet PO SCH (21:40)
[2018-05-20 07:47] LABS: Calcium 9.2 mg/dL (8.5-10.1)
[2018-05-20 07:56] LABS: Potassium 2.9 meq/L (3.5-5.1)
[2018-05-20] MEDS ORDERED: Potassium Chlor 20 mEq Premix 20 MEQ/100 ML PIGGYBACK IV.SIG ONE (08:02)
[2018-05-20 08:57] VITALS: RESP 19
[2018-05-20] MEDS: Rivaroxaban 15 MG Tablet PO SCH (08:57)
[2018-05-20] MEDS: Folic Acid 1 MG Tablet PO SCH (08:57)
[2018-05-20] MEDS: Spironolactone 25 MG Tablet PO SCH (08:57)
[2018-05-20] MEDS: Famotidine 20 MG Tablet PO SCH (08:57)
[2018-05-20] MEDS: rifAXIMin 550 MG Tablet PO SCH (08:57)
[2018-05-20] MEDS: Furosemide 40 MG Tablet PO SCH ×2 (08:58→13:39)
[2018-05-20] MEDS: Sodium Chloride 0.9% 2 ML Flush BID IV.FLUSH SCH (08:58)
[2018-05-20] MEDS ORDERED: Mag Sulf 1 gm/100 ml Premix 100 ML IV.SIG ONE (09:00)
[2018-05-20] MEDS: Allopurinol 300 MG Tablet PO SCH (11:24)
[2018-05-20 12:27] VITALS: BP 136/65; PULSE 70; TEMP 99; O2SAT 97
--- NOTE | 2018-05-20 13:09 | P.PN ---
Subjective Interval history: Patient seen lying in bed eating breakfast. He remains very anxious to go home. Does not wish to answer any my questions and tells me that everything is fine. Nursing reports no adverse events overnight. Physical Exam Vital signs: Vital Signs 05/19/18 15:08 05/19/18 16:00 05/19/18 16:18 Temperature 98.2 F Pulse Rate 80 Respiratory Rate 18 18 Blood Pressure 109/63 Pulse Oximetry 100 99 05/19/18 20:00 05/19/18 20:19 05/19/18 23:00 Temperature 97.9 F Pulse Rate 87 59 L 95 H Respiratory Rate 22 Blood Pressure 99/53 L Pulse Oximetry 97 05/20/18 00:09 05/20/18 04:00 05/20/18 04:34 Temperature 98.5 F 98.2 F Pulse Rate 68 88 106 H Respiratory Rate 21 21 Blood Pressure 127/57 L 126/65 Pulse Oximetry 98 98 05/20/18 08:00 05/20/18 12:00 Temperature 98.3 F 99 F Pulse Rate 68 70 Respiratory Rate 19 19 Blood Pressure 123/80 136/65 Pulse Oximetry 98 97 Intake & Output 05/19/18 05/20/18 05/20/18 18:59 06:59 18:59 Intake Total 680 / 680 100 / 100 Output Total 800 / 800 Balance -120 / -120 100 / 100 Weight 92.986 kg Intake: IV 100 / 100 KCl 20 mEq Premix Inj 20 meq In 100 / 100 100 ml @ 50 mls/hr IV.SIG ONCE ONE Rx#:[id number] Oral 680 / 680 Output: Urine 800 / 800 Other: Weight On Admission 92.986 kg Narrative: Gen.: No acute distress Head: Normocephalic. Atraumatic. EENT: Pupils equal round and reactive to light. Nose without drainage. Airway intact. Throat without injection. Cardiovascular: Regular rate and rhythm. No murmurs, rubs or gallops. Respiratory: Lungs clear to auscultation bilaterally. No wheezes or rhonchi. Abdomen: Soft, nontender, nondistended. No peritoneal signs. Musculoskeletal: No gross deformities. No edema. Skin: No obvious rashes or erythema. Neuro: Sensory and motor grossly intact. Cranial nerves II through XII grossly intact. Right hand tremor Results - Labs CBC & Chem 7: 05/19/18 03:29 05/20/18 12:07 Laboratory Results - last 24 hr 05/19/18 05/20/18 05/20/18 21:50 06:00 06:00 Sodium 137 Potassium 2.9 L* Chloride 100 Carbon Dioxide 23.0 Anion Gap 14 BUN 19 H Creatinine 1.54 H Estimated GFR 44 L POC Glucose 154 H Random Glucose 108 H Calcium 9.2 Magnesium 1.5 05/20/18 05/20/18 05/20/18 07:48 11:44 12:07 Sodium Potassium 3.0 L Chloride Carbon Dioxide Anion Gap BUN Creatinine Estimated GFR POC Glucose 125 H 121 H Random Glucose Calcium Magnesium Assessment and Plan - Plan Assessment/plan: 1. Bradycardia/hypotension/syncope Unclear etiology; suspect possible overmedication and/or EtOH use with pain medication. Patient currently paced Labs and imaging negative Normotensive in the emergency department PT consulted Holding home lisinopril for hypotension 2. Acute on chronic renal insufficiency Creatinine 2.64, baseline 1.5; resolved Monitor renal function Patient refusing oral intake; gentle IVF hydration ordered 3. Atrial fibrillation Continue anticoagulation with Xarelto Continue metoprolol 4. Cirrhosis Continue home lactulose and rifaximin Continue Lasix and spironolactone 5. Neuropathy Patient reports he takes 10 mg of oxycodone 3 times a day (confirmed via E- forcse) Decrease to 5 mg as this may be contributing to patient's symptoms 6. Hyperlipidemia/gout Continue home medications 7. EtOH abuse Monitor for withdrawal. 8. Hypokalemia Acute; replacement ordered Discharge planning: We will likely discharge home with home health once AK I has resolved
--- NOTE | 2018-05-20 13:13 | P.DS ---
Date of admission: 05/18/18 20:39 Primary care physician: Vishal Faye DO Attending physician on discharge: Julissa Alvarado Anticipated date of discharge: 05/20/18 Brief History from admission: 77-year-old male with a past medical history significant for cirrhosis, neuropathy, atrial fibrillation anticoagulated on Xarelto, hyperlipidemia and gout presents to the emergency department for the evaluation of bradycardia and hypotension. The patient reports over the past several weeks he has fallen multiple times. He states that he feels dizzy before he is about to fall some of the time. He also states that approximately 2 weeks ago he lost consciousness prior to a fall in the driveway. Today, the patient was found by EMS to be bradycardic with his heart rate in the 30s-40s and hypotensive with a systolic blood pressure of 70s-80s. The patient endorses dizziness. He denies headache. No fevers or chills. No chest pain or shortness of breath. No abdominal pain. No nausea/vomiting/diarrhea. No lateralizing signs/symptoms. The patient has a [employer] pacemaker/defibrillator and is currently paced in the 50s. DS: Diagnosis - Discharge Diagnosis (1) Hypotension Status: Resolved (2) LIDIA (acute kidney injury) Status: Resolved (3) CKD (chronic kidney disease) Status: Chronic (4) Hypokalemia Status: Resolved (5) EtOH dependence Status: Chronic (6) Symptomatic bradycardia Status: Resolved DS: Summary Hospital Course: Patient is a 77-year-old male with a extensive past medical history including A. fib, chronic kidney disease, cirrhosis, neuropathy, hyperlipidemia , EtOH dependence and A. fib. Admitted due to bradycardia and hypotension with a syncopal episode. Labs and imaging were negative. Patient returned to normotensive status while still in the emergency department. Likely due to overmedication and/or EtOH use with pain medication. Also had acute kidney injury on presentation patient given IVF rehydration and acute kidney injury resolved. Patient also needed potassium supplementation due to hypokalemia. He is on chronic potassium supplementation. - Time Spent with Patient Total time spent providing and/or coordinating discharge services: Less than 30 minutes - Quality: VTE Deep Vein Thrombosis/Pulmonary Embolism Present on Admission: No Exam Vital signs: Vital Signs 05/19/18 15:08 05/19/18 16:00 05/19/18 16:18 Temperature 98.2 F Pulse Rate 80 Respiratory Rate 18 18 Blood Pressure 109/63 Pulse Oximetry 100 99 05/19/18 20:00 05/19/18 20:19 05/19/18 23:00 Temperature 97.9 F Pulse Rate 87 59 L 95 H Respiratory Rate 22 Blood Pressure 99/53 L Pulse Oximetry 97 05/20/18 00:09 05/20/18 04:00 05/20/18 04:34 Temperature 98.5 F 98.2 F Pulse Rate 68 88 106 H Respiratory Rate 21 21 Blood Pressure 127/57 L 126/65 Pulse Oximetry 98 98 05/20/18 08:00 05/20/18 12:00 Temperature 98.3 F 99 F Pulse Rate 68 70 Respiratory Rate 19 19 Blood Pressure 123/80 136/65 Pulse Oximetry 98 97 Intake & Output 05/19/18 05/20/18 05/20/18 18:59 06:59 18:59 Intake Total 680 / 680 100 / 100 Output Total 800 / 800 Balance -120 / -120 100 / 100 Weight 92.986 kg Intake: IV 100 / 100 KCl 20 mEq Premix Inj 20 meq In 100 / 100 100 ml @ 50 mls/hr IV.SIG ONCE ONE Rx#:[id number] Oral 680 / 680 Output: Urine 800 / 800 Other: Weight On Admission 92.986 kg Narrative: Gen.: No acute distress Head: Normocephalic. Atraumatic. EENT: Pupils equal round and reactive to light. Nose without drainage. Airway intact. Throat without injection. Cardiovascular: Regular rate and rhythm. No murmurs, rubs or gallops. Respiratory: Lungs clear to auscultation bilaterally. No wheezes or rhonchi. Abdomen: Soft, nontender, nondistended. No peritoneal signs. Musculoskeletal: No gross deformities. No edema. Skin: No obvious rashes or erythema. Neuro: Sensory and motor grossly intact. Cranial nerves II through XII grossly intact. Right hand tremor Results Procedures completed during hospitalization: none Labs on day of discharge: Labs from last 24 hours 05/20/18 05/20/18 05/20/18 12:07 11:44 07:48 Sodium Potassium 3.0 L Chloride Carbon Dioxide Anion Gap BUN Creatinine Estimated GFR POC Glucose 121 H 125 H Random Glucose Calcium Magnesium 10/10/18 10/10/18 10/09/18 06:00 06:00 21:50 Sodium 137 Potassium 2.9 L* Chloride 100 Carbon Dioxide 23.0 Anion Gap 14 BUN 19 H Creatinine 1.54 H Estimated GFR 44 L POC Glucose 154 H Random Glucose 108 H Calcium 9.2 Magnesium 1.5 - Impressions ITS Impressions Carotid Doppler Study 05/18/18 00:00 CONCLUSION: 1. Right Internal Carotid Artery: Findings indicate 50-69% stenosis. 2. Left Internal Carotid Artery: Findings indicate <50% stenosis. Chest X-Ray 05/18/18 16:14 CONCLUSION: No acute intrathoracic disease. Stable examination. Discharge Plan - Discharge Disposition Patient Disposition: Discharge Home - Discharge Condition Condition: Stable - Discharge Order Discharge Orders: Discharge Order (Routine); Ordered 05/20/18 Ordered By: Delaney Bowman - Physicians Team Primary Care Provider: Vishal Faye Attending Provider: Julissa Alvarado
== END 2018-05-20 13:53 | disposition home or self-care (01) ==
LOC: NEDA 16:05 → NEPE 16:05 → NEDH 05-19 01:12 → H7ONC 05-19 09:41
PROVIDERS: ADMIT Internal Medicine; ATTEND Internal Medicine